=== PATIENT | female | born 1995 | race Caucasian/White ===

== ENCOUNTER 2017-01-17 14:50 | Emergency (ER) | payer BC, OTHER ==
[~2017-01-17] VITALS: Ht 160 cm; Wt 58.5 kg
[2017-01-17 14:53] VITALS: BP 112/74; PULSE 94; RESP 18; TEMP 98; O2SAT 96
--- NOTE | 2017-01-17 18:05 | NUR ---
Patient brought back to bed four via wheelchair. Stable, alert and oriented x4. States was drinking alcohol last night and tripped on stairs and hurt right lateral ankle. Right lateral ankle appears swollen, no discoloration, no deformities noted, limited range of motion present, states is painful to bear weight.Denies any head/neck pain or injury (none noted), denies any loss in conciousness. No other complaints/injuries per patient or noted.
--- NOTE | 2017-01-17 19:00 | NUR ---
Dr. Scott at bedside
[2017-01-17 19:50] VITALS: BP 112/74; PULSE 82; RESP 18; TEMP 98; O2SAT 98
--- NOTE | 2017-01-17 19:50 | NUR ---
Patient given written and verbal discharge instructions and verbalizes understanding. ER MD discussed with patient the results and treatment provided. Patient in stable condition. ID arm band removed. No Rx given. Patient educated on pain management and to follow up with PMD x 1-2 days, referral to podiatry/ortho in 5-7 days, follow up with radiology tomorrow. Pain Scale 0/10 Opportunity for questions provided and answered.
--- NOTE | 2017-01-17 19:50 | NUR ---
Note undone in EDM - 01/17/17 at 2352 by CROW Patient given written and verbal discharge instructions and verbalizes understanding. ER discussed with patient the results and treatment provided. Patient in stable condition. ID arm band removed. No Rx given. Patient educated on pain management and to follow up with PMD x 1-2 days, referral to podiatry/ortho in 5-7 days, follow up with radiology tomorrow. Pain Scale 0/10 Opportunity for questions provided and answered.
== END 2017-01-17 19:50 | disposition home or self-care (01) ==
LOC: SED 14:50
DX: S93.401A Sprain of unspecified ligament of right ankle, initial encounter (principal); W01.0XXA Fall on same level from slipping, tripping and stumbling without subsequent striking against object, initial encounter; Y93.89 Activity, other specified; Y99.8 Other external cause status; Y92.89 Other specified places as the place of occurrence of the external cause
CPT/HCPCS: 99284

== ENCOUNTER 2022-07-23 22:30 | Emergency (ER) | payer BC ==
[~2022-07-23] VITALS: Ht 160 cm; Wt 72.6 kg
[2022-07-23 22:36] VITALS: BP_SYST 119
--- NOTE | 2022-07-23 22:43 | NUR ---
PT HERE C/O UTI X3 WKS. STATES THAT SHE ALSO HAVING INTERMITTENT ABD PAIN FOR THE PAST 3 DAYS. PT DENIES DYSURIA, DENIES FEVER PT AAOX4, NO SOB NOTED AND NAD. PENDING MD HAMPTON.
--- NOTE | 2022-07-23 22:45 | NUR ---
MD BAGLEY AT BEDSIDE EXAMINING PT.
[2022-07-23 23:25] LABS: BILIRUBIN,URINE NEGATIVE (NEGATIVE); BLOOD, URINE 2+ (NEGATIVE); CLARITY/URINE HAZY (CLEAR); COLOR,URINE YELLOW (YELLOW); GLUCOSE,URINE TRACE (NEGATIVE); KETONES,URINE NEGATIVE (NEGATIVE); LEUKOCYTE ESTERASE ,URINE TRACE (NEGATIVE); NITRITE, URINE POSITIVE (NEGATIVE); PROTEIN URINE TRACE (NEGATIVE)
[2022-07-23 23:40] LABS: BACTERIA,URINE FEW /HPF (None Seen); RBC,URINE 0-3 /HPF (0-3)
[2022-07-23 23:41] LABS: MUCUS,URINE 1+ /LPF (None Seen)
[2022-07-23 23:44] LABS: BASOPHILS % (AUTO) 0.5 % (0.0-2.0); EOSINOPHILS % (AUTO) 0.2 % (0.0-4.0); LYMPHOCYTES # (AUTO) 0.7 K/uL (1.0-5.5); LYMPHOCYTES % (AUTO) 14.9 % (20.5-51.5); MEAN CORPUSCULAR HEMOGLOBIN 33 pg (27-31); MEAN CORPUSCULAR HGB CONC 35 % (32-36); MEAN CORPUSCULAR VOLUME 95 fL (79.0-98.0); MONOCYTES # (AUTO) 0.5 K/uL (0.0-1.0); MONOCYTES % (AUTO) 11.7 % (1.7-9.3); NEUTROPHILS # (AUTO) 3.4 K/uL (1.8-7.7); NEUTROPHILS % (AUTO) 72.7 % (40.0-70.0); PLATELET COUNT (AUTO) 130 K/uL (130-430); RED BLOOD CELL COUNT(AUTO) 3.92 MIL/uL (4.2-6.2); RED CELL DISTRIBUTION WIDTH 12.3 % (9.0-15.0); WHITE BLOOD COUNT (AUTO) 4.6 K/uL (4.8-10.8)
[2022-07-23 23:49] LABS: CALCIUM 9.2 mg/dL (8.4-11.0); CREATININE 0.79 mg/dL (0.55-1.30); POTASSIUM 3.6 mmol/L (3.5-5.1)
[2022-07-23 23:55] LABS: ALBUMIN 3.9 g/dL (3.4-4.8); TOTAL BILIRUBIN 0.6 mg/dL (0.0-1.0)
[2022-07-24] MEDS ORDERED: cefTRIAXone 1 GM VIAL IM ONE (00:45)
[2022-07-24] MEDS ORDERED: LIDOCAINE 1%, 20 ML MDV 20 ML ONE (00:45)
--- NOTE | 2022-07-24 00:45 | NUR ---
MEDICATION ADMINISTERED ORDERED.
--- NOTE | 2022-07-24 00:50 | NUR ---
Patient given written and verbal discharge instructions and verbalizes understanding. ER MD Nair discussed with patient the results and treatment provided. Patient in stable condition. ID arm band removed. Patient educated on pain management and to follow up with PMD. Opportunity for questions provided and answered.
[2022-07-24 01:03] VITALS: BP_SYST 121
== END 2022-07-24 01:02 | disposition home or self-care (01) ==
LOC: SED 22:38
DX: N39.0 Urinary tract infection, site not specified (principal); R68.83 Chills (without fever); Z79.899 Other long term (current) drug therapy
CPT/HCPCS: 99283; 80053; 81000; 83690; 85025; 36415; 81025; 96372; J0696; J2001

== ENCOUNTER 2023-01-19 20:31 | Emergency (ER) | payer BC ==
[~2023-01-19] VITALS: Ht 160 cm; Wt 77.1 kg
[2023-01-19 20:36] VITALS: BP_SYST 144
[2023-01-19] MEDS ORDERED: ALBMDI INH (21:38)
[2023-01-19] MEDS ORDERED: PSEU30TA36 PO (21:38)
[2023-01-19 21:42] VITALS: BP_SYST 130
== END 2023-01-19 21:42 | disposition home or self-care (01) ==
LOC: SED 20:31
DX: J40 Bronchitis, not specified as acute or chronic (principal); R05.9 Cough, unspecified; R09.81 Nasal congestion; R06.02 Shortness of breath; Z79.899 Other long term (current) drug therapy; Z20.822 Contact with and (suspected) exposure to COVID-19
CPT/HCPCS: 36415; 71045; 99284